=== PATIENT | female | born 1955 | race Caucasian/White ===

== ENCOUNTER 2018-03-10 08:28 | Day surgery (SDC) | payer OTHER ==
[2018-03-02 13:21] VITALS: BMI 32.1
--- NOTE | 2018-03-04 14:01 | HP ---
Admitting History and Physical - Primary Care Physician PCP: Phill Rose - Admission Chief Complaint: right breast cancer History of Present Illness: 62 year old postmenapausal female with family H/O breast cancer who was found to have right breast 9mm retroareolar density on screening mammogram 01/2018. Diagnostic mammogram and US on January showed 1.2 x1 cm density right retroareolar region 5 cm Fn. US core bx at 6:00 1 cm FN showed invasive ductal carcinoma ER/RI + HER2 -. MRI breast showed right localized breast cancer without adenopathy. History Source: Patient Limitations to Obtaining History: No Limitations - Past Medical History Cardiovascular: Yes: Hyperlipdemia Pulmonary: Yes: Pneumonia (H/O) Psych: Yes: Anxiety Endocrine: Yes: Other (thyroid nodule) - Past Surgical History Past Surgical History: Yes: Appendectomy (appy 1969), Hernia Repair (at age 2), Hysterectomy (BEAU with bladder lift 2008 benign ) Additional Past Surgical History: ovarian cystectomy at 15 - Smoking History Smoking history: Former smoker Have you smoked in the past 12 months: No If you are a former smoker, when did you quit?: 2006 - Alcohol/Substance Use Hx Alcohol Use: Yes (SOCIALLY) Home Medications - Allergies Allergies/Adverse Reactions: Allergies Allergy/AdvReac Type Severity Reaction Status Date / Time No Known Drug Allergies Allergy Verified 03/02/18 13:12 - Home Medications Home Medications: Ambulatory Orders Alprazolam [Xanax] 0.5 mg PO BID 03/02/18 Ibuprofen 800 mg PO BID PRN 03/02/18 Simvastatin 40 mg PO DAILY 03/02/18 Family Disease History - Family Disease History Family Disease History: CA: Father (prostate ca 92 decased) Other Family History: mat cousin breast ca 45. mat cousin brain ca 50. mat uncle cancer 30 ?type. pat cousin brain ca 40 and breast ca. pat cousin brain ca 38. pat cousin brain ca 50 Physical Examination Constitutional: Yes: Well Nourished Breast(s): Yes: Other (B cup breasts with moderate ptosis right breast postbiopsy changes retroareolar region no mass or adenopathy bilaterally) Problem List - Problems (1) Breast cancer, right Code(s): C50.911 - MALIGNANT NEOPLASM OF UNSP SITE OF RIGHT FEMALE BREAST Qualifiers: Breast location: combined nipple and areola Estrogen receptor status: positive Patient sex: female Qualified Code(s): C50.011 - Malignant neoplasm of nipple and areola, right female breast; Z17.0 - Estrogen receptor positive status [ER+] Assessment/Plan right breast wide excision , mammogram needle localization, sentenel node biopsy , lymphoscintogram, possible axillary node dissection and intra op radiation.
[2018-03-10] MEDS ORDERED: ISOSULFAN BLUE 10 MG/ML VIAL SQ ONE (12:50)
[2018-03-10] MEDS ORDERED: BUPIVACAINE HCL 0.25% 125 MG/50 ML VIAL ONE (12:50)
[2018-03-10] MEDS ORDERED: SCOPOLAMINE HYDROBROMIDE 1 PATCH PATCH.TD72 ONE (13:06)
[2018-03-10] MEDS ORDERED: fentaNYL CITRATE 250 MCG/5 ML VIAL ONE (13:10)
[2018-03-10] MEDS ORDERED: MIDAZOLAM HCL 2 MG/2 ML SINGLE DOSE VIAL ONE (13:11)
[2018-03-10] MEDS ORDERED: PROPOFOL 20 ML ONE ×10 (13:11→14:15)
[2018-03-10] MEDS ORDERED: KETOROLAC TROMETHAMINE 30 MG/1 ML VIAL ONE ×2 (13:39→16:52)
[2018-03-10] MEDS ORDERED: LIDOCAINE HCL 2% JELLY (5 ML/TUBE) ONE (13:39)
[2018-03-10] MEDS ORDERED: DEXAMETHASONE SOD PHOSPHATE 4 MG/1 ML VIAL ONE (13:39)
[2018-03-10] MEDS ORDERED: ONDANSETRON 4 MG/2 ML VIAL ONE ×2 (13:39→16:56)
[2018-03-10] MEDS ORDERED: ceFAZolin SODIUM 1 GM VIAL ONE (13:39)
[2018-03-10] MEDS ORDERED: ONDANSETRON 4 MG/2 ML VIAL IVPUSH PRN ×2 (15:06→16:23)
[2018-03-10] MEDS ORDERED: KETOROLAC TROMETHAMINE 30 MG/1 ML VIAL IVPUSH PRN (15:06)
[2018-03-10] MEDS ORDERED: DEXTROSE 5%-0.45% SALINE 1,000 ML IV SCH (15:15)
[2018-03-10] MEDS ORDERED: BUPIVACAINE HCL/PF 0.25% (2.5MG/ML) 10 ML VIAL IJ ONE (15:45)
--- NOTE | 2018-03-10 15:46 | OP ---
DATE OF OPERATION: 03/10/2018 PREOPERATIVE DIAGNOSIS: Right breast retroareolar central breast cancer. POSTOPERATIVE DIAGNOSIS: Right breast retroareolar central breast cancer. PROCEDURE: A right breast wide excision with mammographic needle localization with right axillary sentinel lymph node biopsy and intraoperative radiation using the 3.5-cm INTRABEAM device with partial tissue transfer closure, 4 x 3 cm. PRIMARY SURGEON: Phill Rose MD COLOR SEPARATION PHOTOGRAPHER: ROSIE Austin COMPLICATIONS: None. Briefly, the patient is a 63-year-old, G3, P2, post-menopausal white female of [place] descent. She has a strong family history with her maternal cousin who had breast cancer at age 45 and a paternal cousin who had breast cancer at age 40. There is also brain cancer in the family in a maternal cousin, paternal cousin, and paternal aunt. The patient was found to have a right breast retroareolar 9-mm density seen on mammography in January 2018, and diagnostic mammography and ultrasound showed about a 1.2-cm density centered in the right breast. She underwent an ultrasound-guided core biopsy showing a moderately differentiated, invasive duct cancer which was ER/UT positive, HER2/mariaelena negative. An MRI performed in January 2018, showed the cancer to be localized, measuring about 1.2 cm in the central right breast. The patient was advised of undergoing a right breast partial mastectomy and sentinel lymph node biopsy and was given the option of entering into Target US Trial. She was seen by the radiation oncologist preoperatively and decided to go forward with intraoperative radiation. She was scheduled for the surgery and brought in through Ambulatory Surgery on March 10, 2018. She underwent the needle localization and lymphoscintigraphy at [facility], then was brought to the [facility]. In the holding area, site verification was made, and informed consent was obtained. She was brought into the operating room and laid on the OR table in the supine position. Venodynes were placed on the lower extremities prior to induction. She received a gram of Ancef prior to incision. The right breast was sterilely prepped and draped in usual fashion; 3 mL of Lymphazurin blue were injected intradermally and peritumorally around the needle localization site centrally in the right breast. Incision was made just below the hair-bearing area of the right axilla and dissection was undertaken and there were no blue lymphatics seen. However, there was some blue dye traveling to a level 1 axillary lymph node which had a 10-second gamma count of 471. This was sent to Pathology for permanent section in formalin. A second node was also removed and sent as non-sentinel lymph node which had no gamma counts. No other blue or hot nodes were found, and background count after removal of the 1 sentinel node was 32. Hemostasis was achieved. The axillary wound was closed using interrupted 2-0 plain suture, then interrupted 3-0 deep dermal Vicryl suture and a running 4-0 subcuticular Biosyn suture. At this point, the wide excision was undertaken through a periareolar incision on the inferior aspect of the right breast nipple-areolar complex. Dissection was undertaken around the needle localization, and the breast tissue was completed removed from around the wire with the wire intact within the middle of the specimen. Specimen radiograph showed removal of the clip in question. The specimen was oriented with a long lateral/short superior suture and sent to Pathology in formalin. Separate margins were taken on the superior, inferior, medial, lateral, deep, and anterior margins with a suture marking the biopsy cavity side. These were all sent separately to Pathology as wide surgical margins. Hemostasis was achieved. At this point, a 2-0 plain pursestring was placed around the breast tissue, and a 3.5-cm INTRABEAM device was sterilely placed in the wound. The pursestring suture was tied, and we used ultrasound to determine distance of the skin from the device, which was greater than a centimeter in all quadrants. Intraoperative radiation was then accomplished for about 20 minutes. After the radiation device was removed, the breast tissue was then reapproximated by performing a 4 x 3 cm tissue transfer closure. The breast tissue was reapproximated using 2-0 plain suture. Skin was closed using interrupted 3-0 deep dermal Vicryl suture and a running 4-0 subcuticular Biosyn suture. Mastisol and Steri-Strips were applied over the wounds. A compressive dressing was placed over this. She was placed in a surgical bra postoperatively. The patient will have the laryngeal mask airway tube removed and will be recovered in the postanesthesia care unit and then discharged home the same day once discharge criteria are met. She is to follow up in the office in 1 week for a formal wound pathology check. All sponge and needle counts were correct at the end of the case, and estimated blood loss was about 20 mL. Eun [id number]
[2018-03-10] MEDS ORDERED: PROMETHAZINE HCL 25 MG/1 ML VIAL IVPUSH PRN (16:23)
[2018-03-10] MEDS ORDERED: oxyCODONE HCL 5 MG TABLET PO PRN ×2 (16:23)
[2018-03-10 17:42] VITALS: TEMP 97.8
[2018-03-10 18:49] VITALS: BP 121/74; PULSE 84
--- NOTE | 2018-03-10 21:07 | OP ---
DATE OF OPERATION: 03/10/2018 PREOPERATIVE DIAGNOSIS: Right breast cancer. POSTOPERATIVE DIAGNOSIS: Right breast cancer. PROCEDURE: Post-lumpectomy intraoperative radiation therapy for right breast cancer. ATTENDING SURGEON: Phill Rose MD BROOM HANDLE DIPPER/RADIATION ONCOLOGIST: Arias Elias MD ANESTHESIA: General. COMPLICATIONS: None. INDICATIONS: The patient is a 63-year-old woman recently diagnosed with a clinical stage IA invasive ductal carcinoma of the right breast, who elected to proceed with breast conservation therapy including intraoperative radiation therapy on the [facility] study. PROCEDURE: Dr. Rose performed right lumpectomy and sentinel lymph node biopsy, which he has dictated separately. After excision of additional margins, the lumpectomy cavity was prepared, and sized with a 3.5 cm diameter spherical applicator. The applicator was placed into the lumpectomy cavity and the surrounding breast tissues were cinched around the applicator with a Vicryl pursestring suture. I performed a clinical and ultrasound simulation to ensure that the applicator was located within the operative bed with close apposition of the surrounding breast tissue to the surface of the applicator. Ultrasound measurements confirmed a minimum [id number] distance of 1.4 cm at the 9 o'clock aspect of the applicator. Adequate separation between the applicator and the skin was ensured with placement of saline-soaked gauze between the skin and breast tissue. Shielding material was placed over the breast to reduce scatter radiation. The patient received a total dose of 20 Gy prescribed to 0 mm from the applicator surface using 50 kV x-rays with the Intrabeam system. Prior to treatment, the system was double checked, with appropriate physics quality rep measures. The total time required for the treatment was 19 minutes 19 seconds at a dose rate of 1.037 Gy per minute. When the treatment was completed, survey of the patient and room confirmed that the Intrabeam source was off. There were no complications or unexpected interruptions. Dr. Rose removed the radiation applicator from the patient and completed the surgery. The patient will be discharged to the recovery room following the surgery. ARIAS ELIAS M.D. PENNIE/[id number] cc: Phill Rose MD [facility]
--- NOTE | 2018-03-18 18:18 | PATH ---
Surgical Pathology Report Patient Name: DUDLEY TROTTER [facility]. Rec. #: [id number] /Age/Gender: 1955 (Age: 63) / F Account: [id number] Location: [facility] AMBULATORY Taken: 03/10/2018 Received: 03/11/2018 Reported: 03/18/2018 Physicians: Pihll Rose M.D. Specimen(s) Received A: SENTINEL LYMPH NODE #1 RIGHT B: NON-SENTINEL LYMPH NODE RIGHT C: RIGHT BREAST WIDE EXCISION D: RIGHT BREAST SUPERIOR MARGIN E: RIGHT BREAST INFERIOR MARGIN F: RIGHT BREAST MEDIAL MARGIN G: RIGHT BREAST POSTERIOR MARGIN H: RIGHT BREAST ANTERIOR MARGIN I: RIGHT BREAST LATERAL MARGIN Clinical History Invasive right central Final Diagnosis A. SENTINEL LYMPH NODE #1, RIGHT, EXCISION: ONE LYMPH NODE NEGATIVE FOR CARCINOMA ON H&E AND AE1/3 IMMUNOHISTOCHEMICAL STAIN (0/1). B. NON-SENTINEL LYMPH NODE, RIGHT, EXCISION: ONE LYMPH NODE NEGATIVE FOR CARCINOMA ON H&E AND AE1/3 IMMUNOHISTOCHEMICAL STAIN (0/1). C. 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 INVASIVE CARCINOMA MEASURES 1.4 CM IN GREATEST MICROSCOPIC DIMENSION. DUCTAL CARCINOMA IN SITU (DCIS), SOLID, PAPILLARY, AND MICROPAPILARY TYPES, LOW NUCLEAR GRADE. NO LYMPHOVASCULAR INVASION IDENTIFIED. SURGICAL MARGINS ARE UNINVOLVED BY CARCINOMA; INVASIVE CARCINOMA IS AT 3 MM; WHILE DCIS AT 4 MM FROM CLOSEST DEEP/POSTERIOR MARGIN. SEE SPECIMEN D-I FOR FINAL MARGINS. REMAINDER OF BREAST PARENCHYMA SHOWS ATYPICAL DUCTAL HYPERPLASIA IN A BACKGROUND OF FIBROCYSTIC CHANGES INCLUDING STROMAL FIBROSIS, RARE MICROCYSTS, SCLEROSING ADENOSIS, APOCRINE METAPLASIA, COLUMNAR CELL CHANGE AND ASSOCIATED MICROCALCIFICATIONS. PRIOR BIOPSY SITE CHANGES ARE PRESENT. SEE CASE SUMMARY BELOW. SEE COMMENT. D. BREAST, RIGHT, SUPERIOR MARGIN, EXCISION: BENIGN BREAST WITH FOCAL ATYPICAL DUCTAL HYPERPLASIA. E. BREAST, RIGHT, INFERIOR MARGIN, EXCISION: BENIGN BREAST PARENCHYMA. F. BREAST, RIGHT, MEDIAL MARGIN, EXCISION: BENIGN BREAST PARENCHYMA. G. BREAST, RIGHT, POSTERIOR MARGIN, EXCISION: INVASIVE LOBULAR CARCINOMA, NUCLEAR GRADE 1 (TUBULE SCORE: 3/3, NUCLEAR GRADE: 1/3, MITOTIC SCORE: 1/3; TOTAL KALPESH SCORE: 5/9), CLASSICAL TYPE. INVASIVE CARCINOMA MEASURES 4 MM IN GREATEST MICROSCOPIC DIMENSION. FOCAL DUCTAL CARCINOMA IN SITU (DCIS). LOBULAR CARCINOMA IN SITU (LCIS), CLASSICAL TYPE. INVASIVE LOBULAR CARCINOMA IS AT <1 MM FROM NEW POSTERIOR MARGIN. DCIS IS AT <1 MM FROM NEW POSTERIOR MARGIN. NO LYMPHOVASCULAR INVASION IDENTIFIED. SEE CASE SUMMARY BELOW. H. BREAST, RIGHT, ANTERIOR MARGIN, EXCISION: BENIGN BREAST PARENCHYMA. I. BREAST, RIGHT, LATERAL MARGIN, EXCISION: BENIGN BREAST PARENCHYMA. PATHOLOGIC STAGE (pTNM): pT1c (m) pN0 (sn). Comment: Part C, E-cadherin is positive in the invasive carcinoma, supportive of ductal phenotype. Part G, Immunohistochemical stains performed and interpreted at [facility] show myoepithelial markers (p63 and SMM-HC) are present in both DCIS and LCIS; while absent in the invasive component. CK7 is focally positive. Additional immunohistochemical stains performed at [facility], [place], [place] ([id number]) and interpreted at [facility] show both in situ and invasive carcinomas are positive for AE1/3. E-cadherin originally performed in [facility] show weak positive staining; but negative on repeat staining in [facility]. Together with the p120 cytoplasmic staining; are supportive of lobular phenotype. Part I, E-cadherin utilized to evaluate this case. Breast biomarker studies for part G (Invasive lobular carcinoma) pending and will be reported separately. Comments Breast Invasive Carcinoma: Surgical Pathology Case Summary (Based on AJCC TNM 8 th edition) Procedure _X__ Excision (less than total mastectomy) Specimen Laterality _X__ Right Tumor Size _X__ Greatest dimension of largest invasive focus >1 mm (specify exact measurement) (millimeters): _14 mm__ Histologic Type _X__ Invasive carcinoma of no special type (ductal, not otherwise specified)- part C _X__ Invasive lobular carcinoma- part G Histologic Grade (Kalpesh Histologic Score) Part C (Invasive Ductal Carcinoma) Glandular (Acinar)/Tubular Differentiation _X__ Score 2 (10% to 75% of tumor area forming glandular/tubular structures) Nuclear Pleomorphism _X__ Score 1 Mitotic Rate _X__ Score 1 Overall Grade _X__ Grade 1 (score of 4) Part G (Invasive Lobular Carcinoma) Glandular (Acinar)/Tubular Differentiation _X__ Score 3 (<10% of tumor area forming glandular/tubular structures) Nuclear Pleomorphism _X__ Score 1 Mitotic Rate _X__ Score 1 Overall Grade _X__ Grade 1 (score of 5) Tumor Focality _X__ Multiple foci of invasive carcinoma Number of foci: _2_ Sizes of individual foci: _14 mm and 4 mm_ Ductal Carcinoma In Situ (DCIS) _X__ DCIS is present in specimen _X__ Positive for EIC Margins Invasive Carcinoma Margins _X__ Uninvolved by invasive carcinoma Invasive ductal carcinoma is 3 mm from posterior/deep margin in wide excision (C). Invasive lobular carcinoma is <1 mm from new posterior margin (G). Distance from closest margin (millimeters): <1 mm Closest margin: New Posterior DCIS Margins _X__ Uninvolved by DCIS Distance from closest margin (millimeters): _<1_ mm Closest margin: New Posterior Regional Lymph Nodes Number of Lymph Nodes with Macrometastases (>2 mm): 0 Number of Lymph Nodes with Micrometastases (>0.2 mm to 2 mm and/or >200 cells): 0 Number of Lymph Nodes with Isolated Tumor Cells (=0.2 mm and =200 cells): 0 Number of Lymph Nodes Examined: 2 Number of [place] Nodes Examined : 1 Treatment Effect _X__ No known presurgical therapy Lymphovascular Invasion _X__ Not identified Pathologic Stage Classification (pTNM, AJCC 8th Edition) TNM Descriptors _X__ m (multiple foci of invasive carcinoma) Primary Tumor (Invasive Carcinoma) (pT) _X__ pT1c: Tumor >10 mm but =20 mm in greatest dimension Regional Lymph Nodes (pN) Modifier _X__ (sn): [place] node(s) evaluated. Category (pN) _X__ pN0: No regional lymph node metastasis identified or ITCs only Biomarker Studies Invasive Ductal Carcinoma (C) Results of ER and LA studies performed on this specimen (block# C2) at [facility] are as follows: ER (clone [id number] mouse monoclonal antibody by [employer]): 95% nuclear staining with strong intensity (Positive). LA (clone16 mouse monoclonal antibody by [employer]): 95% nuclear staining with moderate to strong intensity (Positive). Positive and negative controls (internal if applicable) show appropriate results. Formalin fixation and cold ischemic times are within current ASCO/CAP recommendations for ER, LA and Her2 testing. Results of Her2 (IHC) & Ki-67 studies performed on block "C2" at [place], [place] ([id number]) are as follows: Her2 IHC (EP3 from [employer], formerly known as [id number], using [employer] Polymer Refine detection kit): 0 (Negative). Ki-67: ~10% (Low proliferative index). Positive and negative controls (internal if applicable) show appropriate results. Electronically Signed Yaa Marquez M.D. Addendum Reported: 03/19/2018 Addendum Diagnosis Invasive lobular carcinoma (G) Results of Estrogen Receptor (ER), Progesterone Receptor (LA), HER2 (IHC) and Ki-67 studies performed on block "G1" at [place], [place] ([id number]) are as follows: ER (clone [id number] mouse monoclonal antibody by [employer]): ~95% nuclear staining with strong intensity (Positive). LA (clone16 mouse monoclonal antibody by [employer]): 0% nuclear staining (Negative). Her2 IHC (EP3 from [employer], formerly known as [id number], using [employer] Polymer Refine detection kit): 0 (Negative). Ki-67: ~5% (Low proliferative index). Positive and negative controls (internal if applicable) show appropriate results. Yaa Marquez M.D. Gross Description A. Received in formalin labeled "sentinel node #1 right breast," is a 1.5 x 1.2 x 0.5 cm greenberg, irregular lymph node with attached fat. The specimen is bisected and entirely submitted in one cassette. B. Received in formalin labeled "right breast non-sentinel node," is a 1.4 x 0.8 x 0.5 cm greenberg, irregular lymph node with attached fat. The specimen is bisected and entirely submitted in one cassette. C. Received in formalin, labeled "right breast wide excision," is a 5.5 x 4.7 x 3.2 cm. greenberg-yellow, irregular, portion of fibroadipose tissue with a needle localization wire present. There is a short suture marking the superior aspect and a long suture marking the lateral aspect, per the surgeon. There is no skin or nipple present. The specimen is inked as follows: superior and lateral blue; inferior green; medial yellow; anterior red; deep/posterior black. The specimen is serially sectioned from lateral to medial. Sectioning reveals a 0.9 x 0.9 x 0.8 cm greenberg, indurated lesion abutting the deep/posterior margin. There is a perez metallic biopsy clip identified within the lesion. The lesion is 1.0 cm from the superior margin and 1.2 cm from the inferior margin. The remaining margins appear clear of the mass. Loan Representative sections are submitted in 8 cassettes as follows: 0-4-cwyxobia submitted mass (each with deep/posterior margin); 4-anterior margin; 5-superior margin; 6-inferior margin; 7-medial margin; 8-lateral margin. Time to formalin fixation: 15 minutes Total formalin fixation time: Approximately 27 hours. D. Received in formalin labeled "right breast superior margin," is a 3.7 x 2.6 x 1.4 cm portion of fibroadipose tissue with a suture presumably marking the biopsy cavity side. The presumed new margin is inked blue and the specimen is serially sectioned. The specimen is entirely and sequentially submitted in 6 cassettes. E. Received in formalin labeled "right breast inferior margin," is a 3.0 x 2.1 x 0.9 cm portion of fibroadipose tissue with a suture presumably marking the biopsy cavity side. The presumed new margin is inked blue and the specimen is serially sectioned. The specimen is entirely and sequentially submitted in 3 cassettes. F. Received in formalin labeled "right breast medial margin," is a 2.5 x 2.0 x 1.0 cm portion of fibroadipose tissue with a suture presumably marking the biopsy cavity side. The presumed new margin is inked blue and the specimen is serially sectioned. The specimen is entirely and sequentially submitted in 3 cassettes. G. Received in formalin labeled "right breast posterior margin," is a 5.4 x 2.3 x 1.2 cm portion of fibroadipose tissue with a suture presumably marking the biopsy cavity side. The presumed new margin is inked blue and the specimen is serially sectioned. The specimen is entirely and sequentially submitted in 5 cassettes. H. Received in formalin labeled "right breast anterior margin," is a 2.4 x 1.5 x 0.6 cm portion of fibroadipose tissue with a suture presumably marking the biopsy cavity side. The presumed new margin is inked blue and the specimen is serially sectioned. The specimen is entirely submitted in 2 cassettes. I. Received in formalin labeled "right breast lateral margin," is a 3.6 x 2.6 x 1.2 cm portion of fibroadipose tissue with a suture presumably marking the biopsy cavity side. The presumed new margin is inked blue and the specimen is serially sectioned. The specimen is entirely and sequentially submitted in 3 cassettes. 03/11/2018 saudi03/11/2018
--- NOTE | 2018-03-20 11:24 | HP ---
Admitting History and Physical - Primary Care Physician PCP: Phill Rose - Admission Chief Complaint: right breast cancer History of Present Illness: 63 yo female s/p right breast WE with snbx on 03/10/2018 was noted to have invasive lobular carcinoma at the posterior margin requiring reexcision. History Source: Patient Limitations to Obtaining History: No Limitations - Past Medical History Cardiovascular: Yes: Hyperlipdemia Pulmonary: Yes: Pneumonia (H/O) Psych: Yes: Anxiety Endocrine: Yes: Other (thyroid nodule) - Past Surgical History Past Surgical History: Yes: Appendectomy (appy 1970), Hernia Repair (at age 2), Hysterectomy (BEAU with bladder lift 2008 benign ) Additional Past Surgical History: ovarian cystectomy at 15 - Smoking History Smoking history: Former smoker Have you smoked in the past 12 months: No If you are a former smoker, when did you quit?: 2006 - Alcohol/Substance Use Hx Alcohol Use: Yes (SOCIALLY) Home Medications - Allergies Allergies/Adverse Reactions: Allergies Allergy/AdvReac Type Severity Reaction Status Date / Time No Known Drug Allergies Allergy Verified 03/02/18 13:12 - Home Medications Home Medications: Ambulatory Orders Alprazolam [Xanax] 0.5 mg PO BID 03/02/18 Simvastatin 40 mg PO DAILY 03/02/18 Oxycodone HCl/Acetaminophen [Percocet 5-325 mg Tablet -] 1 - 2 tab PO Q6H #10 tablet MDD 5 03/10/18 Family Disease History - Family Disease History Family Disease History: CA: Father (prostate ca 92 decased) Other Family History: mat cousin breast ca 45. mat cousin brain ca 50. mat uncle cancer 30 ?type. pat cousin brain ca 40 and breast ca. pat cousin brain ca 38. pat cousin brain ca 50 Review of Systems - Review of Systems Constitutional: reports: No Symptoms Cardiovascular: reports: No Symptoms Gastrointestinal: reports: No Symptoms Physical Examination Vital Signs: Vital Signs Temperature 97.8 F 03/10/18 18:50 Pulse Rate 84 03/10/18 18:50 Respiratory Rate 18 03/10/18 18:50 Blood Pressure 121/74 03/10/18 18:50 O2 Sat by Pulse Oximetry (%) 96 03/10/18 18:30 Constitutional: Yes: Well Nourished Breast(s): Yes: Other (Right breast incision is healing well without any evidence of erythema or discharge. No swelling noted.) Problem List - Problems (1) Breast cancer, right Code(s): C50.911 - MALIGNANT NEOPLASM OF UNSP SITE OF RIGHT FEMALE BREAST Qualifiers: Breast location: combined nipple and areola Estrogen receptor status: positive Patient sex: female Qualified Code(s): C50.011 - Malignant neoplasm of nipple and areola, right female breast; Z17.0 - Estrogen receptor positive status [ER+] Assessment/Plan Plan: Right breast reexcision of positive margins
== END 2018-03-10 18:40 | disposition home or self-care (01) ==
LOC: FASU 08:28
PROVIDERS: ATTEND Surgery Surgical Oncology
PROC: 0HBT0ZZ Excision of Right Breast, Open Approach (ICD-10-PCS; principal; 2018-03-10 13:00)
PROC: DMY17ZZ Contact Radiation of Right Breast (ICD-10-PCS; 2018-03-10 13:00)
PROC: 0JX60ZC Transfer Chest Subcutaneous Tissue and Fascia with Skin, Subcutaneous Tissue and Fascia, Open Approach (ICD-10-PCS; 2018-03-10 13:00)
DX: C50.911 Malignant neoplasm of unspecified site of right female breast (principal); Z17.0 Estrogen receptor positive status [ER+]; Z80.3 Family history of malignant neoplasm of breast; E78.5 Hyperlipidemia, unspecified
CPT/HCPCS: 19281; 76641-TC-50; 77290; 77300; 77316; 77332; 77370-TC; 77424; 78195-TC; 88307-TC; 88341-TC; 88342-TC; 94760; A9541; C9726

== ENCOUNTER 2018-03-26 08:32 | Day surgery (SDC) | payer OTHER ==
[2018-03-23 12:47] VITALS: BMI 31.1
--- NOTE | 2018-03-25 10:51 | HP ---
Admitting History and Physical - Primary Care Physician PCP: Phill Rose - Admission Chief Complaint: Right breast cancer positive margin S/P wide excision History of Present Illness: 62 year old postmenapausal female S/P right breast wide excision 03/10/2018 intra op RT negative sentenl node biopsy . 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 History Source: Patient Limitations to Obtaining History: No Limitations - Past Medical History Cardiovascular: Yes: Hyperlipdemia Pulmonary: Yes: Pneumonia (H/O) ...: No Psych: Yes: Anxiety Endocrine: Yes: Other (thyroid nodule) - Past Surgical History Past Surgical History: Yes: Appendectomy (appy 1970), Hernia Repair (at age 2), Hysterectomy (BEAU with bladder lift 2007 benign ) Additional Past Surgical History: Right breast wide excision SNBX neg/ path showed invasive ductal ca and positive posterior margin with a lobular cancer INTRAOP RT - Smoking History Smoking history: Former smoker Have you smoked in the past 12 months: No Aproximately how many cigarettes per day: 20 If you are a former smoker, when did you quit?: 2006 - Alcohol/Substance Use Hx Alcohol Use: Yes (SOCIALLY) Home Medications - Allergies Allergies/Adverse Reactions: Allergies Allergy/AdvReac Type Severity Reaction Status Date / Time No Known Drug Allergies Allergy Verified 03/23/18 12:47 - Home Medications Home Medications: Ambulatory Orders Alprazolam [Xanax] 0.5 mg PO BID 03/02/18 Simvastatin 40 mg PO DAILY 03/02/18 Ascorbic Acid [Vitamin C -] 1,000 mg PO BID 03/23/18 Zinc 50 mg PO DAILY 03/23/18 Family Disease History - Family Disease History Family Disease History: CA: Father (prostate ca 92 decased) Physical Examination Constitutional: Yes: No Distress Breast(s): Yes: Other (Nicely healed right periareolar incision no hematoma or infection) Problem List - Problems (1) Breast cancer, right Code(s): C50.911 - MALIGNANT NEOPLASM OF UNSP SITE OF RIGHT FEMALE BREAST Qualifiers: Breast location: combined nipple and areola Estrogen receptor status: positive Patient sex: female Qualified Code(s): C50.011 - Malignant neoplasm of nipple and areola, right female breast; Z17.0 - Estrogen receptor positive status [ER+] Assessment/Plan re excision right posterior margin
[2018-03-26] MEDS ORDERED: MIDAZOLAM HCL 2 MG/2 ML SINGLE DOSE VIAL ONE (08:42)
[2018-03-26] MEDS ORDERED: ONDANSETRON 4 MG/2 ML VIAL ONE ×2 (08:42→10:28)
[2018-03-26] MEDS ORDERED: fentaNYL CITRATE 250 MCG/5 ML VIAL ONE (08:42)
[2018-03-26] MEDS ORDERED: DEXAMETHASONE SOD PHOSPHATE 4 MG/1 ML VIAL ONE ×2 (08:42→10:28)
[2018-03-26] MEDS ORDERED: LIDOCAINE HCL/PF 2% SDV 5ML VIAL ONE (08:42)
[2018-03-26] MEDS ORDERED: PROPOFOL 20 ML ONE (08:42)
[2018-03-26] MEDS ORDERED: LIDOCAINE HCL 1% PRESERVATIVE FREE - 30ML VIAL ONE (09:42)
[2018-03-26] MEDS ORDERED: BUPIVACAINE HCL/PF 2.5 MG/ML - 30 ML VIAL IJ ONE (09:42)
[2018-03-26] MEDS ORDERED: ONDANSETRON 4 MG/2 ML VIAL IVPUSH PRN (09:48)
[2018-03-26] MEDS ORDERED: KETOROLAC TROMETHAMINE 30 MG/1 ML VIAL IVPUSH PRN (09:48)
[2018-03-26] MEDS ORDERED: SCOPOLAMINE HYDROBROMIDE 1 PATCH PATCH.TD72 ONE (09:49)
[2018-03-26] MEDS ORDERED: DEXTROSE 5%-0.45% SALINE 1,000 ML IV SCH (10:00)
[2018-03-26] MEDS ORDERED: ceFAZolin SODIUM 1 GM VIAL ONE (10:16)
[2018-03-26] MEDS ORDERED: BUPIVACAINE HCL/PF 0.25% (2.5MG/ML) 10 ML VIAL IJ ONE (10:39)
[2018-03-26] MEDS ORDERED: KETOROLAC TROMETHAMINE 30 MG/1 ML VIAL ONE (11:07)
[2018-03-26] MEDS ORDERED: oxyCODONE HCL 5 MG TABLET PO PRN ×2 (11:07)
[2018-03-26] MEDS ORDERED: LACTATED RINGERS SOLUTION 1,000 ML IV SCH (11:15)
[2018-03-26 12:22] VITALS: TEMP 98
--- NOTE | 2018-03-26 12:49 | OP ---
DATE OF OPERATION: 03/26/2018 PREOPERATIVE DIAGNOSIS: Right breast cancer, central, 8 o'clock region. POSTOPERATIVE DIAGNOSIS: Right breast cancer, central, 8 o'clock region. PROCEDURE: Re-excision posterior margin, right breast. ANESTHESIA: General laryngeal mask airway anesthesia. PRIMARY SURGEON: Thor Rose MD ENGINEERING SPECIALIST TECHNICIAN: ROSIE Daigle COMPLICATIONS: There were no complications. INDICATIONS: Briefly, the patient is a 63-year-old postmenopausal female of [place] descent. She has a family history with a maternal cousin who had breast cancer at age 45 and a paternal cousin who had breast cancer at age 40. There is also brain cancer in the family. The patient was found to have a right breast 9 o'clock retroareolar density measuring about 1.2 cm on ultrasound. An ultrasound-guided core biopsy showed a moderately differentiated invasive duct cancer, which was ER/KS positive, HER2/mariaelena negative. She underwent a right breast partial mastectomy with intraoperative radiation as part of the target US trial on March 10, 2018, which showed a 1.4-cm well-differentiated invasive duct cancer with negative sentinel node. She ended up having another separate 4-mm invasive lobular cancer on the posterior margin, which was ER/KS positive, HER2/mariaelena negative, but it was less than 1 mm from the posterior margin. The patient was advised on re-excision of the posterior margin and also understood that she now will require external beam radiation. She did undergo [facility] genetic panel testing in January of 2018, which was negative. The patient was brought into the operating room for re-excision of the posterior margin of the right breast on March 26, 2018. In the holding area, site verification was made and informed consent was obtained. DESCRIPTION OF PROCEDURE: She was brought into the operating room and laid on the OR table in the supine position. Venodynes were placed on the lower extremities. She received 1 g of Ancef prior to incision. She underwent general laryngeal mask airway anesthesia, and the right breast was sterilely prepped and draped in the usual fashion. It should be noted that she did have slight rash on her anterior abdominal wall and the right axilla, possibly related to a reaction to possibly the previously used prep from her surgery. The right breast was prepped using iodine and not chlorhexidine. The previous right breast periareolar incision was reopened. Dissection was undertaken. The biopsy cavity was reentered, and there was a small seroma, which was evacuated. The posterior margin was easily found and fully excised. A suture was placed on the posterior margin biopsy cavity side and was sent to Pathology in formalin. Hemostasis was achieved. The breast parenchyma was then reapproximated using 2-0 plain suture. The skin was closed using interrupted 3-0 deep dermal Vicryl suture and a running 4-0 subcuticular Biosyn suture. Dermabond was placed over the wound. She was placed in a surgical bra postoperatively, and the Betadine was completely wiped off the skin at the end of the case. The patient will be recovered in the post-anesthesia care unit and be discharged home the same day once discharge criteria are met. All sponge and needle counts were correct at the end of the case, and estimated blood loss was minimal. She will follow up in the office in 1 week for formal wound pathology check. THOR ROSE M.D. [id number]
[2018-03-26 13:00] VITALS: BP 100/58; PULSE 67
--- NOTE | 2018-03-27 17:10 | PATH ---
Surgical Pathology Report Patient Name: DUDLEY TROTTER [facility]. Rec. #: [id number] /Age/Gender: 1955 (Age: 63) / F Account: [id number] Location: [facility] Taken: 03/26/2018 Received: 03/26/2018 Reported: 03/27/2018 Physicians: Phill Rose M.D. Specimen(s) Received RIGHT BREAST POSTERIOR MARGIN Clinical History Right re-excision for close/ positive margin Final Diagnosis BREAST, RIGHT, POSTERIOR MARGIN, RE-EXCISION: BENIGN BREAST TISSUE SHOWING PRIOR BIOPSY SITE CHANGES. NO RESIDUAL INVASIVE OR IN SITU CARCINOMA IS IDENTIFIED. Electronically Signed Cristiane Rivera M.D. Gross Description Received in formalin labeled "right breast posterior margin," is a 2.9 x 2.2 x 0.9 cm portion of fibroadipose tissue with a suture marking the biopsy cavity side, per the surgeon. The new margin is inked blue and the specimen is serially sectioned. The specimen is entirely and sequentially submitted in 4 cassettes. /03/26/2018 saudi03/26/2018
== END 2018-03-26 12:55 | disposition home or self-care (01) ==
LOC: FASU 08:32
PROVIDERS: ATTEND Surgery Surgical Oncology
PROC: 0HBU0ZX Excision of Left Breast, Open Approach, Diagnostic (ICD-10-PCS; principal; 2018-03-26 10:00)
DX: C50.011 Malignant neoplasm of nipple and areola, right female breast (principal); Z17.0 Estrogen receptor positive status [ER+]
CPT/HCPCS: 88307-TC; 94760